=== PATIENT | female | born 1980 | race Caucasian/White ===

== ENCOUNTER → 2019-09-28 | Outpatient (CLI) | payer BC ==
[~2019-09-28] MED LIST: ONDAN4ODT PO
--- NOTE | 2019-09-28 12:32 | Diagnostic Imaging Report ---
EXAMINATION: Digital mammogram bilateral screening. The current study was also evaluated with a Computer Aided Detection (CAD) system. 3-D tomosynthesis was also performed and reviewed. INDICATION: Screening. This is the patient's baseline study. At this time there are no current complaints. FINDINGS: The fibroglandular tissue in both breasts is heterogeneously dense. This does limit the sensitivity of this exam. There are number of calcifications scattered throughout both breasts, particularly the right breast. These calcifications are not tightly clustered and have a generally benign appearance. In the 6 o'clock position of the left breast approximately 9-10 cm from the nipple, there is a well-circumscribed 1 cm oval density. I suspect that this is a benign process such as a cyst or lymph node. There is a second similar sized but slightly smaller benign-appearing nodular density in the inferior most aspect of the left breast roughly 9 cm from the nipple. This finding can only be seen with certainty on the MLO view. This finding is most likely benign as well; however, as there are no previous exams available to demonstrate that these findings are stable, I would recommend that ultrasound of the left breast be performed for further evaluation. There is no primary or secondary sign of malignancy involving the right breast. IMPRESSION: Ultrasound of the left breast will be recommended for further evaluation. ACR BI-RADS Category 0: Incomplete. (Needs additional imaging evaluation). Result letter will be mailed to the patient. Note: At least 10% of breast cancer is not imaged by mammography. Dictated by: Dictated on workstation # [id number]
== END ==
LOC: RAD 08:19
PROVIDERS: ATTEND Obstetrics & Gynecology
DX: Z12.31 Encounter for screening mammogram for malignant neoplasm of breast (principal); N63.25 Unspecified lump in the left breast, overlapping quadrants
CPT/HCPCS: 77067

== ENCOUNTER → 2019-10-03 | Outpatient (CLI) | payer BC ==
--- NOTE | 2019-10-03 09:52 | Diagnostic Imaging Report ---
INDICATION: Abnormal mammogram. TECHNIQUE: Targeted ultrasound in the inferior and medial aspect left breast was obtained. FINDINGS: In the 6 o'clock position of the left breast 9 cm from the nipple there is a hypoechoic nodule measuring 0.8 x 0.6 x 0.4 cm. There are internal echoes. There is also some increased through transmission. There is no internal blood flow. There is a questionable well-circumscribed pseudocapsule. 9 o'clock position 9 cm from nipple. There is a more complex heterogeneous hypoechoic area measuring 0.7 x 0.4 x 0.6 cm. Features are suggestive of a cluster of tiny cysts. There is no posterior acoustic shadowing. No internal blood flow. IMPRESSION: Category 3 probably benign. The nodule in the 6 clock position of the left breast is either complex cysts or possibly small fibroadenoma. Nodule in the 9 o'clock position appears to be a cluster of tiny cysts. Recommend 6 month follow-up ultrasound to ensure stability of both of these areas. ACR BI-RADS Category 3: Probably benign findings. Dictated by: Dictated on workstation # [id number]
== END ==
LOC: RAD 09:01
PROVIDERS: ATTEND Obstetrics & Gynecology
DX: N63.25 Unspecified lump in the left breast, overlapping quadrants (principal)
CPT/HCPCS: 76642

== ENCOUNTER → 2020-04-02 | Outpatient (CLI) | payer BC ==
--- NOTE | 2020-04-04 08:25 | Diagnostic Imaging Report ---
Willowthanh Cowan DB: 1980 EXAMINATION: Left breast ultrasound on 04/02 INDICATION: Six-month follow-up left breast nodules. Correlation is made with prior left breast ultrasound from 10/03/2019. Previously noted circumscribed hypoechoic nodule 6:00 location of the left breast, 9 cm from the nipple measures 8 mm x 4 mm x 4 mm, stable compared with prior exam. The hypoechoic nodule 9:00 location of the left breast, 9 cm from the nipple measures 6 mm x 4 mm x 6 mm, stable when compared to prior exam. No new abnormality is detected. IMPRESSION: BI-RADS Category 3 Stable nodules at the 6:00 and 9:00 locations of the left breast when compared with prior examination from 6 months earlier. This now shows 6 months of stability. Additional sonographic follow-up in 6 months is recommended to show continued stability ACR BI-RADS Category 3: Probably benign findings. Dictated by: Dictated on workstation # [id number]
== END ==
LOC: RAD 08:35
PROVIDERS: ATTEND Obstetrics & Gynecology
DX: N63.22 Unspecified lump in the left breast, upper inner quadrant (principal)
CPT/HCPCS: 76642

== ENCOUNTER → 2020-10-03 | Outpatient (CLI) | payer BC ==
--- NOTE | 2020-10-03 10:24 | Diagnostic Imaging Report ---
INDICATION: Six-month follow-up of left breast nodules. CORRELATION is made with prior left breast ultrasound from 04/02/2020. The circumscribed hypoechoic nodule at the 6:00 location of the left breast measures 8 mm x 5 mm x 7 mm, similar to prior exam. The ovoid circumscribed nodule at the 9:00 location measures 6 mm x 3 mm x 6 mm, stable when compared with prior exam. No new abnormality is detected. IMPRESSION: BI-RADS Category 3 Stable left breast nodules. Additional six-month follow-up with ultrasound is recommended to show continued stability. Dictated by: Dictated on workstation # [id number]
--- NOTE | 2020-10-03 11:07 | Diagnostic Imaging Report ---
Indication: Left breast nodules. Correlation is made prior mammogram from 09/28/2019. 2-D and 3-D bilateral diagnostic mammography was performed with CAD. Both breasts are heterogeneously dense, limiting the sensitivity of mammography. Nodular density in the medial left breast appears stable. No new masses are seen. There are scattered benign calcifications. No malignant appearing microcalcifications are seen. Axillae are unremarkable. IMPRESSION: BI-RADS Category 3 Stable bilateral mammograms. Left breast nodules are stable. These did demonstrate stability on ultrasound of the same day as well. Follow-up left breast ultrasound in 6 months is recommended to show continued stability. ACR BI-RADS Category 3: Probably benign findings. Result letter will be mailed to the patient. Note: At least 10% of breast cancer is not imaged by mammography. Dictated by: Dictated on workstation # [id number]
== END ==
LOC: RAD 09:15
PROVIDERS: ATTEND Obstetrics & Gynecology
DX: N63.25 Unspecified lump in the left breast, overlapping quadrants (principal)
CPT/HCPCS: 76642; 77066; G0279; 77062

== ENCOUNTER → 2021-04-15 | Outpatient (CLI) | payer BC ==
--- NOTE | 2021-04-15 14:29 | Diagnostic Imaging Report ---
INDICATION: 6 month followup left breast nodule. COMPARISON: Correlation is made with the prior ultrasound from 10/03/2020. FINDINGS: The circumscribed hypoechoic nodule at the 6 o'clock location of the left breast 9 cm from the nipple is stable at 7 mm x 7 mm x 6 mm. No internal vascularity is seen. The nodule at the 9 o'clock location is no longer visualized. No new mass is detected. IMPRESSION: Stable hypoechoic nodule at the 6 o'clock location of the left breast 9 cm from the nipple. This now shows 1 year stability. An additional 6 month followup with ultrasound is recommended to show continued stability. ACR BI-RADS Category 3: Probably benign findings. Result letter will be mailed to the patient. Note: At least 10% of breast cancer is not imaged by mammography. Dictated by: Dictated on workstation # [id number]
== END ==
LOC: RAD 09:00
PROVIDERS: ATTEND Obstetrics & Gynecology
DX: N63.22 Unspecified lump in the left breast, upper inner quadrant (principal); N63.24 Unspecified lump in the left breast, lower inner quadrant
CPT/HCPCS: 76642

== ENCOUNTER 2021-06-20 18:14 | Emergency (ER) | payer BC ==
[~2021-06-20] VITALS: Ht 167.7 cm; Wt 80.0 kg
[2021-06-20] MEDS ORDERED: KETOROLAC 60 MG/2 ML VIAL IM STA (19:16)
--- NOTE | 2021-06-20 19:22 | ED Lower Extremity ---
General Stated Complaint: L LEG PAIN, NON PRESSURE BEARING Source: patient History of Present Illness Date Seen by Provider: Jun 20, 2021 Time Seen by Provider: 19:10 Initial Comments PT ARRIVES VIA POV FROM HOME WITH MALE S.O. PT STATES SHE WAS IN THE KITCHEN AND JUMPED UP, AND WHEN SHE CAME DOWN, HER LEG/ANKLE/FOOT BUCKLED AND SHE LANDED ON HER LEFT LEG/ANKLE/FOOT OCCURRED AROUND 1730 TONIGHT WAS WEARING FABRIC LOAFERS WITH RUBBER SOLES AT THE TIME C/O PAIN TO POSTERIOR HEEL/ACHILLES AREA C/O SLIGHT TINGLING TO TOP OF LEFT FOOT EARLIER, BUT NOT NOW UNABLE TO BEAR WEIGHT ON LEFT FOOT NO OTHER INJURIES FROM THE INCIDENT NO PRIOR INJURIES TO THIS LEG/ANKLE/FOOT HAS NOT TAKEN ANYTHING FOR PAIN LMP--UNKNOWN, PT TAKES CONTINUOUS CONTROL AND DOES NOT HAVE PERIODS PCP: WAS DR. LUIS Allergies and Home Medications Allergies Coded Allergies: No Known Drug Allergies (Unverified , 06/20/21) Patient Home Medication List Ondansetron Hcl (Zofran Oral Dissolve) 4 Mg Tab, 4 MG PO Q4H Prescribed by: ROGER REDDING on 04/07/10 1553 Review of Systems Constitutional: no symptoms reported Control/STD Prophylaxis: BC Pills Musculoskeletal: see HPI Skin: no symptoms reported Psychiatric/Neurological: See HPI Past Panmhko-Ycuwdv-Rtuzgk Hx Past Medical History Surgeries: Yes ( X 2) Section Respiratory: No Cardiac: No Neurological: No : No Reproductive Disorders: No Genitourinary: No Gastrointestinal: No Musculoskeletal: No Endocrine: No HEENT: No Cancer: No Psychosocial: No Integumentary: No Blood Disorders: No Physical Exam Vital Signs Vital Signs - First Documented 06/20/21 19:06 Temp 36.7 Pulse 93 Resp 18 B/P (MAP) 141/92 (108) Pulse Ox 100 O2 Delivery Room Air Capillary Refill : Height, Weight, BMI Height: '" Weight: lbs. oz. kg; BMI Method:Stated General Appearance: WD/WN, no apparent distress Hips: bilateral hip normal inspection Legs: bilateral leg normal inspection Knees: bilateral knee normal inspection Ankles: right ankle normal inspection; left ankle other (MARKED TENDERNESS TO LEFT ACHILLES AREA. MILD SWELLING OVER ACHILLES AREA. NO GROSS DEFORMITY OR BRUISING NOTED. LIMITED ROM DUE TO PAIN ) Feet: right foot normal inspection; left foot other ( ABOVE) Neurologic/Tendon: normal sensation, normal motor functions, other (PEDAL PULSES INTACT; DISTAL MOTOR/SENSORY/VASCULAR INTACT) Neurologic/Psychiatric: video manager II-XII nml as tested, no motor/sensory deficits, alert, normal mood/affect, oriented x 3 Skin: normal color, warm/dry; No ecchymosis Procedures/Interventions Splinting and Joint Reduction : Alfred wrap: Yes Immobilizers: Step Light Walker s/m/lg Ordered: Crutches Progress/Results/Core Measures Results/Orders My Orders Orders - ROGER REDDING DO Foot, Left, 3 Views (06/20/21 19:16) Ankle, Left, 3 Views (06/20/21 19:16) Ketorolac Injection (Toradol Injection) (06/20/21 19:16) Vital Signs/I&O 06/20/21 19:06 Temp 36.7 Pulse 93 Resp 18 B/P (MAP) 141/92 (108) Pulse Ox 100 O2 Delivery Room Air Diagnostic Imaging Comments PER RADIOLOGIST REPORTS AT 1945 XRAYS RIGHT FOOT--NO ACUTE PROCESS XRAYS RIGHT ANKLE--NO ACUTE PROCESS Reviewed: Reviewed by Me Departure Communication (Admissions) 1940--SPOKE WITH DR. TORREZ, ADVISES BOOT AND CRUTCHES AND HE WILL SEE IN OFFICE ON TUESDAY Impression Primary Impression: Injury of left Achilles tendon Disposition: HOME, SELF-CARE Condition: Stable Departure-Patient Inst. Decision time for Depature: 19:45 Referrals: NO,LOCAL PHYSICIAN (PCP) Primary Care Physician MARCELA TORREZ MD Patient Instructions: Achilles Tendinopathy, Going Up and Down Curbs or Stairs With a Walker or Crutches, How to Use Crutches, Walking Boot Add. Discharge Instructions: ICE TO SORE AREA AT 20 MINUTE INTERVALS ELEVATE FOOT MUCH POSSIBLE ALFRED WRAP, BOOT AND CRUTCHES AT ALL TIMES--NO WEIGHT BEARING FOLLOW UP WITH DR. TORREZ ON TUESDAY--CALL OFFICE FIRST THING TUESDAY MORNING Scripts Hydrocodone/Acetaminophen (Hydrocodone-Acetamin 5-325 mg) 1 Each Tablet 1 EACH PO Q4-6 HOURS PRN for PAIN, #20 TAB Prov: ROGER REDDING DO 06/20/21 ROGER REDDING DO Jun 20, 2021 19:22
--- NOTE | 2021-06-20 19:43 | Diagnostic Imaging Report ---
EXAM: FOOT, LEFT, 3 VIEWS INDICATION: Left foot trauma and pain. COMPARISON: None. FINDINGS: No fracture or malalignment. Soft tissue shadows are unremarkable. IMPRESSION: No acute radiographic finding in the left foot. Dictated by: Dictated on workstation # [id number]
--- NOTE | 2021-06-20 19:44 | Diagnostic Imaging Report ---
EXAM: ANKLE, LEFT, 3 VIEWS INDICATION: Left ankle trauma and pain. COMPARISON: None. FINDINGS: No fracture or malalignment. Soft tissue shadows are unremarkable. IMPRESSION: Negative left ankle radiographs. Dictated by: Dictated on workstation # [id number]
[2021-06-20] MEDS ORDERED: ACHD5005 PO (19:51)
[2021-06-20 22:01] VITALS: BP 146/89
== END 2021-06-20 20:31 | disposition home or self-care (01) ==
LOC: EDUNIT# 18:14 → ER 18:16
DX: S86.002A Unspecified injury of left Achilles tendon, initial encounter (principal); X50.0XXA Overexertion from strenuous movement or load, initial encounter
CPT/HCPCS: 73610; 73630

== ENCOUNTER → 2022-04-30 | Outpatient (CLI) | payer BC ==
[~2022-04-30] MED LIST changes: +ACHD5005 PO
--- NOTE | 2022-04-30 14:41 | Diagnostic Imaging Report ---
Indication: Follow-up left breast nodule. Correlation is made with prior left breast ultrasound from 04/15/2021. The slightly lobulated solid appearing nodule 6:00 location left breast, 9 cm from the nipple now measures 9 mm x 4 mm x 9 mm, similar in size to prior exam one year earlier. Overall shape is slightly more ovoid than prior study. This has benign features. No new mass is seen. IMPRESSION: BI-RADS Category 2 Stable benign-appearing nodule 6:00 location left breast. Patient may return to routine annual screening mammography. ACR BI-RADS Category 2: Benign findings. Dictated by: Dictated on workstation # [id number]
--- NOTE | 2022-04-30 14:44 | Diagnostic Imaging Report ---
Indication: Follow-up left breast nodule. Comparison is made with prior mammogram 10/03/2020 and 09/28/2019. 2-D and 3-D bilateral diagnostic mammography was performed with CAD. CAD is utilized. The current study was also evaluated with a Computer Aided Detection (CAD) system. Both breasts remain heterogeneously dense, limiting the sensitivity of mammography. Nodular density inferior left breast is similar to prior exam. No new masses detected. No malignant-appearing microcalcifications are identified. Scattered benign calcifications are noted. Axillae are unremarkable. IMPRESSION: BI-RADS 0 Stable bilateral mammograms with stable left breast nodule when compared exam from 10/03/2020 and 09/28/2019. Follow-up left breast ultrasound is recommended as well and will be performed today. ACR BI-RADS Category 0: Incomplete. (Needs additional imaging evaluation). Result letter will be mailed to the patient. Note: At least 10% of breast cancer is not imaged by mammography. Dictated by: Dictated on workstation # [id number]
== END ==
LOC: RAD 12:45
PROVIDERS: ATTEND Obstetrics & Gynecology
DX: N63.25 Unspecified lump in the left breast, overlapping quadrants (principal); N63.22 Unspecified lump in the left breast, upper inner quadrant
CPT/HCPCS: 76642; 77066; G0279; 77062

== ENCOUNTER → 2023-05-19 | Outpatient (CLI) | payer BC ==
--- NOTE | 2023-05-19 13:21 | Diagnostic Imaging Report ---
INDICATION: Routine screening. Comparison is made with prior mammogram from 04/30/2022 and 10/03/2020. 2-D and 3-D bilateral screening mammography was performed with CAD. Both breasts are heterogeneously dense, limiting the sensitivity of mammography. Scattered benign calcifications are again noted. No mass or malignant-appearing microcalcifications are seen. Axillae are unremarkable. IMPRESSION: No mammographic features suspicious for malignancy are identified. ACR BI-RADS Category 2: Benign findings. Result letter will be mailed to the patient. Note: At least 10% of breast cancer is not imaged by mammography. BI-RADS Category 2 Dictated by: Dictated on workstation # [id number]
== END ==
LOC: RAD 09:50
PROVIDERS: ATTEND Obstetrics & Gynecology
DX: Z12.31 Encounter for screening mammogram for malignant neoplasm of breast (principal)
CPT/HCPCS: 77063; 77067